=== PATIENT | female | born 1965 | race Caucasian/White ===

== ENCOUNTER 2024-09-22 12:54 | Outpatient (RCR) | payer MEDICAID, SELFPAY ==
--- NOTE | 2024-09-22 13:25 | PT.OIERPT ---
PT OP Initial Eval Patient Information Outpatient Physical Therapy Treatment Date: 09/22/24 Visit Reasons: neck pain Medical Diagnosis: M48.02 Treatment Dx #1: Abnormal Gait Treatment Dx #2: Difficulty Walking Start of Care: 09/22/24 Date of Onset: 6 months ago Smoking Status Smoking Status: Current every day smoker (yes) Cessation Counseling Provided: YOAN was advised that quitting smoking is the single most important factor to protect the health of themselves and their family. Discussed the benefits of quitting smoking with patient. Encouraged patient to quit smoking and provided Cessation assistance materials and resources. Tobacco Use: Cigarette Years smoked: 20 Are you interested in quitting?: No Would you like additional Smoking Cessation Counseling?: No Initial Assessment Subjective: Pt is a 58 y/o female reports of gait difficulty, falls, and general weakness ~ 6 months ago. Pt has limitation with walking, standing, self care, balance, and performing recreational activities. Pt will like a power w/c to improve overall independence with ADLs. Objective: BUE AROM: all motions are WFL BUE MMTs: grossly 3/5 BLE AROM: all motions are WFL BLE MMTs: grossly 3+/5 Tug Score: 18 sec Please see power w/c form for more details Assessment: Pt demonstrate decrease mobility, strength, and decondition leading to difficulty with ADLs, ambulation, and overall dynamic balance. Pt will benefit from a power w/c to improve overall independence with functional tasks. Pt was evaluated and d/c from care; thank you for your referrals. Short Term and [employer] Goals 1) Eval and D/C 2) Recommend power w/c Treatment Plan Frequency and Duration: 1x Certification Dates: 09/22/24 to 12/21/24 Procedure Charges OP PT Eval Mod Complex 30 minutes: Yes
== END 2024-10-14 23:59 | disposition home or self-care (01) ==
LOC: CPTX 12:54
PROVIDERS: PCP Nurse Practitioner Family; Referring Provider Nurse Practitioner Family; Visit Provider Nurse Practitioner Family
DX: R26.2 Difficulty in walking, not elsewhere classified (principal); R53.1 Weakness; R26.89 Other abnormalities of gait and mobility; M48.02 Spinal stenosis, cervical region; Z71.6 Tobacco abuse counseling; F17.210 Nicotine dependence, cigarettes, uncomplicated
CPT/HCPCS: 97162

== ENCOUNTER → 2025-04-24 | Outpatient (CLI) | payer MEDICAID, SELFPAY ==
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
== END | disposition home or self-care (01) ==
PROVIDERS: PCP Internal Medicine; Referring Provider Nurse Practitioner Gerontology; Visit Provider Nurse Practitioner Gerontology
DX: M19.032 Primary osteoarthritis, left wrist (principal); M19.031 Primary osteoarthritis, right wrist; M18.0 Bilateral primary osteoarthritis of first carpometacarpal joints; M19.042 Primary osteoarthritis, left hand; M19.041 Primary osteoarthritis, right hand
CPT/HCPCS: 73110; 73130